=== PATIENT | male | born 1945 | race Caucasian/White ===

== ENCOUNTER 2018-09-10 18:38 | Inpatient (IN) | payer OTHER ==
[~2018-09-10] VITALS: Ht 180.3 cm; Wt 159.6 kg
--- NOTE | 2018-09-10 18:38 | NUR ---
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 cardiac, NIBP & SpO2 monitors in place.
--- NOTE | 2018-09-10 18:59 | NUR ---
report given to Marco.
[2018-09-10] MEDS ORDERED: VANCOMYCIN PER PHARMACY MC PRN (19:30)
[2018-09-10] MEDS ORDERED: METRONIDAZOLE PMX 500MG/100ML 100 ML IV ONE (19:30)
[2018-09-10] MEDS ORDERED: CEFTRIAXONE PMX 1GM/50ML 50 ML IV ONE (19:30)
[2018-09-10] MEDS ORDERED: SODIUM CHLORIDE 0.9% 1,000ML IVBOLUS ONE (19:30)
[2018-09-10] MEDS ORDERED: LORazepam 2 MG/ML, 1ML ONE (19:34)
[2018-09-10] MEDS ORDERED: METRONIDAZOLE PMX 500MG/100ML 100 ML ONE (19:45)
[2018-09-10] MEDS ORDERED: CEFTRIAXONE PMX 1GM/50ML 50 ML ONE (19:45)
[2018-09-10 19:52] LABS: BASOPHILS # (AUTO) 0.04 x10^3/uL (0-0.1); BASOPHILS % (AUTO) 0 % (0-1); EOSINOPHILS # (AUTO) 0.01 x10^3/uL (0-0.4); EOSINOPHILS % (AUTO) 0 % (1-7); LYMPHOCYTES # (AUTO) 0.96 x10^3/uL (1-3.4); LYMPHOCYTES % (AUTO) 9 % (22-44); MD NO; MEAN CORPUSCULAR HEMOGLOBIN 29.7 pg (27.5-34.5); MEAN CORPUSCULAR HGB CONC 32.5 g/dL (33.2-36.2); MEAN CORPUSCULAR VOLUME 91.6 fL (81-97); MEAN PLATELET VOLUME 8.6 fL (7.4-10.4); MONOCYTES # (AUTO) 0.94 x10^3/uL (0.2-0.8); MONOCYTES % (AUTO) 9 % (2-9); NEUTROPHILS # (AUTO) 8.62 x10^3/uL (1.8-6.8); NEUTROPHILS % (AUTO) 82 % (42-75); PLATELET COUNT 231 x10^3/uL (130-400); RED BLOOD COUNT 4.53 x10^6/uL (4.38-5.82); RED CELL DISTRIBUTION WIDTH 15.5 % (9.4-14.8)
[2018-09-10 19:55] LABS: HCT (SEDRATE) 41.4 % (39.2-51.8)
[2018-09-10] MEDS ORDERED: VANCOMYCIN 2,000 MG in SODIUM CHLORIDE 0.9% 500 ML IV ONE (20:00)
[2018-09-10] MEDS ORDERED: LORazepam 2 MG/ML, 1ML IVPush ONE (20:00)
[2018-09-10] MEDS ORDERED: PHARMACOKINETIC CONSULTATION MC ONE (20:00)
[2018-09-10 20:03] LABS: INTERNATIONAL NORMALIZED RATIO 2.33 (0.93-1.1); PROTHROMBIN TIME 23.9 Seconds (9.6-11.5)
[2018-09-10 20:05] LABS: ALBUMIN 2.8 g/dL (3.4-5.0); ANION GAP 8 mmol/L (5-15); CALCIUM 8.3 mg/dL (8.5-10.1); CHLORIDE 111 mmol/L (98-107)
[2018-09-10 20:11] LABS: ALANINE AMINOTRANSFERASE 79 U/L (12-78); ALKALINE PHOSPHATASE 81 U/L (45-117); BILIRUBIN,TOTAL 0.6 mg/dL (0.2-1.0); CREATININE 2.43 mg/dL (0.7-1.3); TOTAL PROTEIN 6.5 g/dL (6.4-8.2); TROPONIN I 0.065 ng/mL (0.000-0.045)
--- NOTE | 2018-09-10 20:50 | NUR ---
RN AND TECH ASSISTED PT TO CT WITH ENTRY LEVEL STAFF ACCOUNTANT. MULTIPLE STUDIES DONE. PT NOT COOPERATIVE WITH STUDY, PT REPOSITIONED ON CT TABLE MULTIPLE TIMES.
--- NOTE | 2018-09-10 21:05 | NUR ---
PT PLACED IN SOFT BILAT WRIST RESTRAINTS TO PREVENT PT FROM PULLING AT IV'S AND SANDS WHILE CLEANING PT. ORDER OBTAINED AND SIGNED.
--- NOTE | 2018-09-10 21:15 | NUR ---
LINENS AND SOILED CLOTHING REMOVED FROM UNDER PT. PT HAS MULTIPLE WOUND ON BILAT LEGS, ABBRASIONS AND BLISTERS WITH SKIN PEELING. WOUNDS AND BACKSIDE CLEANED WITH SOAP AND WATER, CHUCKS PLACED UNDER PT. PT POSITIONED FOR COMFORT AND WARM BLANKETS PROVIDED.
[2018-09-10 21:41] LABS: AMPHETAMINE SCREEN, URINE Negative (Negative); BARBITURATE SCREEN, URINE Negative (Negative); BENZODIAZEPINE SCREEN, URINE Negative (Negative); CANNABINOID SCREEN, URINE Negative (Negative); COCAINE SCREEN, URINE Negative (Negative); METHADONE SCREEN, URINE Negative (Negative); OPIATE SCREEN, URINE Positive (Negative)
[2018-09-10 22:03] LABS: CREATINE KINASE, TOTAL 30859 U/L (39-308)
[2018-09-10 22:12] LABS: CULTURE INDICATED? YES; MICROSCOPIC INDICATED
[2018-09-10] MEDS ORDERED: SODIUM CHLORIDE 0.9% 1,000 ML IV SCH (22:45)
[2018-09-10] MEDS ORDERED: SODIUM CHLORIDE 0.9% 2,000 ML IV ONE (23:00)
[2018-09-10] MEDS ORDERED: ONDANSETRON 2MG/ML, 2ML IVPush PRN (23:30)
[2018-09-10] MEDS ORDERED: hydrALAzine 20 MG/ML, 1ML IVPush PRN (23:30)
[2018-09-10] MEDS ORDERED: HALOPERIDOL 5 MG/ML IVPush PRN (23:30)
[2018-09-11 00:23] VITALS: BP 102/62
[2018-09-11] MEDS: SODIUM CHLORIDE 0.9% 1,000 ML IV SCH ×2 (00:38→08:16)
[2018-09-11 05:20] LABS: BASOPHILS # (AUTO) 0.02 x10^3/uL (0-0.1); BASOPHILS % (AUTO) 0 % (0-1); EOSINOPHILS # (AUTO) 0.02 x10^3/uL (0-0.4); EOSINOPHILS % (AUTO) 0 % (1-7); LYMPHOCYTES # (AUTO) 0.81 x10^3/uL (1-3.4); LYMPHOCYTES % (AUTO) 9 % (22-44); MD NO; MEAN CORPUSCULAR HEMOGLOBIN 29.9 pg (27.5-34.5); MEAN CORPUSCULAR HGB CONC 32.7 g/dL (33.2-36.2); MEAN CORPUSCULAR VOLUME 91.5 fL (81-97); MEAN PLATELET VOLUME 8.7 fL (7.4-10.4); MONOCYTES # (AUTO) 0.79 x10^3/uL (0.2-0.8); MONOCYTES % (AUTO) 9 % (2-9); NEUTROPHILS # (AUTO) 6.92 x10^3/uL (1.8-6.8); NEUTROPHILS % (AUTO) 81 % (42-75); PLATELET COUNT 189 x10^3/uL (130-400); RED BLOOD COUNT 4.16 x10^6/uL (4.38-5.82); RED CELL DISTRIBUTION WIDTH 15.7 % (9.4-14.8)
[2018-09-11 06:22] LABS: ALBUMIN 2.3 g/dL (3.4-5.0); ANION GAP 7 mmol/L (5-15); CALCIUM 7.4 mg/dL (8.5-10.1); CHLORIDE 119 mmol/L (98-107)
[2018-09-11 06:37] VITALS: BP 104/60
[2018-09-11 06:48] LABS: ALANINE AMINOTRANSFERASE 82 U/L (12-78); ALKALINE PHOSPHATASE 69 U/L (45-117); BILIRUBIN,TOTAL 0.4 mg/dL (0.2-1.0); CHOLESTEROL, TOTAL 125 mg/dL (140-239); CREATININE 1.98 mg/dL (0.7-1.3); FOLATE LEVEL 3.8 ng/mL (3.1-17.5); HDL CHOL % 34 % (26-37); HDL CHOLESTEROL (DIRECT) 42 mg/dL (40-60); LDL CHOLESTEROL,CALCULATED 62 mg/dL (54-169); LDL/HDL RATIO 1.5 (0.5-3.0); TOTAL PROTEIN 5.3 g/dL (6.4-8.2); TRIGLYCERIDES 106 mg/dL (50-200); VLDL CHOLESTEROL 21 mg/dL (0-25)
[2018-09-11] MEDS: LACTATED RINGERS 1,000 ML IV SCH ×2 (09:29→16:28)
[2018-09-11] MEDS ORDERED: SILVER SULF. CRM 1% , 25GM TP SCH (09:30)
[2018-09-11 12:13] VITALS: BP 102/67
[2018-09-11 12:41] LABS: CREATININE,URINE RANDOM 50.7 mg/dL
[2018-09-11] MEDS ORDERED: ASPI-515 PO (13:46)
[2018-09-11] MEDS ORDERED: EZET10TA18 PO (13:46)
[2018-09-11] MEDS ORDERED: TROS20TA2 PO (13:46)
[2018-09-11] MEDS ORDERED: RANI300C PO (13:46)
[2018-09-11] MEDS ORDERED: WARF-36 PO ×2 (13:46)
[2018-09-11] MEDS ORDERED: LISI40TA PO (13:46)
[2018-09-11] MEDS ORDERED: CYAN100063 PO (13:46)
[2018-09-11] MEDS ORDERED: FINA5TAB4 PO (13:46)
[2018-09-11] MEDS ORDERED: CYCL5TAB PO (13:46)
[2018-09-11] MEDS ORDERED: PROB500T22 PO (13:46)
[2018-09-11] MEDS ORDERED: TERA5CAP3 PO (13:46)
[2018-09-11] MEDS ORDERED: LORA10TA62 PO (13:46)
[2018-09-11] MEDS ORDERED: GABA800T5 PO (13:46)
[2018-09-11] MEDS ORDERED: HYDR25TA6 PO (13:46)
[2018-09-11] MEDS: POLYETHYLENE GLYCOL 17 GM PACKET PO PRN (14:54)
[2018-09-11] MEDS: HEPARIN 5,000 UNITS/ML, 1ML SQ SCH ×2 (14:54→22:19)
[2018-09-11 20:20] VITALS: BP 97/59
[2018-09-11] MEDS: CEFTRIAXONE PMX 1GM/50ML 50 ML IV SCH (20:21)
[2018-09-11] MEDS: SILVER SULF. CRM 1%, 400GM TP SCH (21:55)
[2018-09-11] MEDS: ACETAMINOPHEN 325 MG TABLET PO PRN (22:18)
[2018-09-12 01:13] VITALS: BP 136/54
[2018-09-12] MEDS: LACTATED RINGERS 1,000 ML IV SCH ×4 (01:25→22:49)
[2018-09-12 04:09] LABS: ALBUMIN 2.2 g/dL (3.4-5.0); ANION GAP 5 mmol/L (5-15); CALCIUM 7.6 mg/dL (8.5-10.1); CHLORIDE 115 mmol/L (98-107); CREATININE 1.59 mg/dL (0.7-1.3)
[2018-09-12] MEDS: ACETAMINOPHEN 325 MG TABLET PO PRN (05:19)
[2018-09-12] MEDS: HEPARIN 5,000 UNITS/ML, 1ML SQ SCH ×3 (05:20→22:41)
[2018-09-12 05:52] LABS: CREATINE KINASE, TOTAL 22814 U/L (39-308)
[2018-09-12 07:01] VITALS: BP 129/68
[2018-09-12] MEDS: PROBENECID 500 MG TABLET PO SCH ×2 (09:30→20:57)
[2018-09-12] MEDS ORDERED: LISINOPRIL 20 MG TABLET PO SCH (09:30)
[2018-09-12] MEDS ORDERED: HYDROCHLOROTHIAZIDE 25 MG TABLET PO SCH (09:30)
[2018-09-12] MEDS: TEMPLATE NON-FORMULARY MED. (Trospium Chloride 20 MG) HOMEMEDPO SCH (09:30)
[2018-09-12 10:24] LABS: INTERNATIONAL NORMALIZED RATIO 1.76 (0.93-1.1); PROTHROMBIN TIME 18.3 Seconds (9.6-11.5)
[2018-09-12] MEDS: TERAZOSIN 5MG CAPSULE PO SCH ×2 (10:27→20:56)
[2018-09-12] MEDS: LORATADINE 10 MG TABLET PO SCH (10:27)
[2018-09-12] MEDS: EZETIMIBE 10 MG TABLET PO SCH (10:27)
[2018-09-12] MEDS: GABAPENTIN 300 MG CAPSULE PO SCH ×2 (10:27→20:56)
[2018-09-12] MEDS: ASPIRIN 81 MG TABLET EC PO SCH (10:28)
[2018-09-12] MEDS: CYANOCOBALAMIN 1,000 MCG TABLET PO SCH (10:28)
[2018-09-12] MEDS: CYCLOBENZAPRINE 10 MG TABLET PO SCH ×3 (10:28→20:57)
[2018-09-12] MEDS: FINASTERIDE 5 MG TABLET PO SCH (10:37)
[2018-09-12] MEDS: SILVER SULF. CRM 1%, 400GM TP SCH ×2 (10:37→20:57)
[2018-09-12 12:42] VITALS: BP 123/65
[2018-09-12] MEDS: OXYcodone/APAP 5/325MG TABLET PO PRN (17:16)
[2018-09-12] MEDS ORDERED: WARFARIN 7.5 MG TABLET PO-COUM SCH (18:00)
[2018-09-12 20:30] VITALS: BP 96/51
[2018-09-12] MEDS: CEFTRIAXONE PMX 1GM/50ML 50 ML IV SCH (20:50)
[2018-09-12] MEDS: TEMPLATE NON-FORMULARY MED. (Ranitidine Hcl** 300 MG) HOMEMEDPO SCH (20:57)
[2018-09-13 01:23] VITALS: BP 94/57
[2018-09-13] MEDS: HEPARIN 5,000 UNITS/ML, 1ML SQ SCH ×3 (05:31→20:59)
[2018-09-13] MEDS: LACTATED RINGERS 1,000 ML IV SCH ×3 (05:31→18:20)
[2018-09-13 05:55] LABS: INTERNATIONAL NORMALIZED RATIO 1.5 (0.93-1.1); PROTHROMBIN TIME 15.7 Seconds (9.6-11.5)
[2018-09-13 08:30] VITALS: BP 122/76
[2018-09-13] MEDS: PROBENECID 500 MG TABLET PO SCH ×2 (09:00→20:56)
[2018-09-13] MEDS: TEMPLATE NON-FORMULARY MED. (Trospium Chloride 20 MG) HOMEMEDPO SCH (09:00)
[2018-09-13] MEDS: SILVER SULF. CRM 1%, 400GM TP SCH ×2 (09:00→20:56)
[2018-09-13] MEDS: GABAPENTIN 300 MG CAPSULE PO SCH ×2 (09:29→20:56)
[2018-09-13] MEDS: EZETIMIBE 10 MG TABLET PO SCH (09:29)
[2018-09-13] MEDS: TERAZOSIN 5MG CAPSULE PO SCH ×2 (09:30→20:56)
[2018-09-13] MEDS: FINASTERIDE 5 MG TABLET PO SCH (09:30)
[2018-09-13] MEDS: CYCLOBENZAPRINE 10 MG TABLET PO SCH ×3 (09:30→20:56)
[2018-09-13] MEDS: ASPIRIN 81 MG TABLET EC PO SCH (09:30)
[2018-09-13] MEDS: CYANOCOBALAMIN 1,000 MCG TABLET PO SCH (09:30)
[2018-09-13] MEDS: LORATADINE 10 MG TABLET PO SCH (09:31)
[2018-09-13] MEDS: OXYcodone/APAP 5/325MG TABLET PO PRN ×2 (12:30→18:38)
[2018-09-13 13:41] VITALS: BP 97/61
[2018-09-13] MEDS ORDERED: WARFARIN 7.5 MG TABLET PO-COUM SCH (18:00)
[2018-09-13 19:12] VITALS: BP 119/60
[2018-09-13] MEDS: CEFTRIAXONE PMX 1GM/50ML 50 ML IV SCH (19:59)
[2018-09-13] MEDS: TEMPLATE NON-FORMULARY MED. (Ranitidine Hcl** 300 MG) HOMEMEDPO SCH (20:57)
[2018-09-14] MEDS: OXYcodone/APAP 5/325MG TABLET PO PRN ×3 (01:05→23:21)
[2018-09-14 02:22] VITALS: BP 96/58
[2018-09-14] MEDS: LACTATED RINGERS 1,000 ML IV SCH ×3 (02:30→11:55)
[2018-09-14 05:45] LABS: INTERNATIONAL NORMALIZED RATIO 1.62 (0.93-1.1); PROTHROMBIN TIME 16.9 Seconds (9.6-11.5)
[2018-09-14] MEDS: HEPARIN 5,000 UNITS/ML, 1ML SQ SCH ×3 (05:58→22:05)
[2018-09-14] MEDS: TEMPLATE NON-FORMULARY MED. (Trospium Chloride 20 MG) HOMEMEDPO SCH (07:33)
[2018-09-14] MEDS: PROBENECID 500 MG TABLET PO SCH ×2 (07:34→21:00)
[2018-09-14] MEDS: LORATADINE 10 MG TABLET PO SCH (08:01)
[2018-09-14] MEDS: ASPIRIN 81 MG TABLET EC PO SCH (08:01)
[2018-09-14] MEDS: CYANOCOBALAMIN 1,000 MCG TABLET PO SCH (08:01)
[2018-09-14] MEDS: GABAPENTIN 300 MG CAPSULE PO SCH ×3 (08:01→20:59)
[2018-09-14] MEDS: FINASTERIDE 5 MG TABLET PO SCH (08:01)
[2018-09-14] MEDS: TERAZOSIN 5MG CAPSULE PO SCH ×2 (08:01→20:59)
[2018-09-14] MEDS: EZETIMIBE 10 MG TABLET PO SCH (08:02)
[2018-09-14] MEDS: CYCLOBENZAPRINE 10 MG TABLET PO SCH ×3 (08:02→20:58)
[2018-09-14] MEDS: POLYETHYLENE GLYCOL 17 GM PACKET PO PRN (08:09)
[2018-09-14 08:16] VITALS: BP 124/81
[2018-09-14] MEDS: SILVER SULF. CRM 1%, 400GM TP SCH ×2 (09:00→22:05)
[2018-09-14 10:29] LABS: ALANINE AMINOTRANSFERASE 65 U/L (12-78); ALBUMIN 1.9 g/dL (3.4-5.0); ANION GAP 7 mmol/L (5-15); CALCIUM 7.6 mg/dL (8.5-10.1); CHLORIDE 110 mmol/L (98-107); CREATININE 0.88 mg/dL (0.7-1.3)
[2018-09-14 10:43] LABS: ALKALINE PHOSPHATASE 62 U/L (45-117); BILIRUBIN,TOTAL 0.3 mg/dL (0.2-1.0); CREATINE KINASE, TOTAL 6488 U/L (39-308); TOTAL PROTEIN 4.5 g/dL (6.4-8.2)
[2018-09-14 12:53] VITALS: BP 133/71
[2018-09-14 14:51] LABS: MICROSCOPIC INDICATED
[2018-09-14 14:55] LABS: CREATININE,URINE RANDOM 75.4 mg/dL
[2018-09-14] MEDS ORDERED: WARFARIN 7.5 MG TABLET PO-COUM ONE (18:00)
[2018-09-14 18:49] VITALS: BP 124/76
[2018-09-14] MEDS: CEFTRIAXONE PMX 1GM/50ML 50 ML IV SCH (20:59)
[2018-09-14] MEDS: TEMPLATE NON-FORMULARY MED. (Ranitidine Hcl** 300 MG) HOMEMEDPO SCH (21:00)
[2018-09-15 00:19] VITALS: BP 122/76
[2018-09-15] MEDS: ACETAMINOPHEN 325 MG TABLET PO PRN (04:25)
[2018-09-15 05:19] LABS: BASOPHILS # (AUTO) 0.07 x10^3/uL (0-0.1); BASOPHILS % (AUTO) 1 % (0-1); EOSINOPHILS % (AUTO) 2 % (1-7); LYMPHOCYTES # (AUTO) 1.78 x10^3/uL (1-3.4); LYMPHOCYTES % (AUTO) 17 % (22-44); MD NO; MEAN CORPUSCULAR HEMOGLOBIN 30.2 pg (27.5-34.5); MEAN CORPUSCULAR HGB CONC 33.4 g/dL (33.2-36.2); MEAN CORPUSCULAR VOLUME 90.5 fL (81-97); MEAN PLATELET VOLUME 8.2 fL (7.4-10.4); MONOCYTES # (AUTO) 0.72 x10^3/uL (0.2-0.8); MONOCYTES % (AUTO) 7 % (2-9); NEUTROPHILS # (AUTO) 7.68 x10^3/uL (1.8-6.8); NEUTROPHILS % (AUTO) 74 % (42-75); PLATELET COUNT 278 x10^3/uL (130-400); RED BLOOD COUNT 4.58 x10^6/uL (4.38-5.82); RED CELL DISTRIBUTION WIDTH 15.4 % (9.4-14.8)
[2018-09-15 05:25] LABS: INTERNATIONAL NORMALIZED RATIO 2.07 (0.93-1.1); PROTHROMBIN TIME 21.3 Seconds (9.6-11.5)
[2018-09-15 05:32] LABS: ANION GAP 8 mmol/L (5-15); CALCIUM 7.5 mg/dL (8.5-10.1); CHLORIDE 107 mmol/L (98-107)
[2018-09-15 05:37] LABS: % IRON SATURATION 22 % (20-55); ALANINE AMINOTRANSFERASE 81 U/L (12-78); ALKALINE PHOSPHATASE 67 U/L (45-117); BILIRUBIN,TOTAL 0.4 mg/dL (0.2-1.0); CREATININE 0.95 mg/dL (0.7-1.3); IRON LEVEL 46 mcg/dL (65-175); TOTAL IRON BINDING CAPACITY 212 mcg/dL (250-450); TOTAL PROTEIN 4.7 g/dL (6.4-8.2)
[2018-09-15] MEDS: HEPARIN 5,000 UNITS/ML, 1ML SQ SCH ×2 (05:48→13:39)
[2018-09-15 06:59] VITALS: BP 117/78
[2018-09-15] MEDS: TEMPLATE NON-FORMULARY MED. (Trospium Chloride 20 MG) HOMEMEDPO SCH (07:36)
[2018-09-15] MEDS: PROBENECID 500 MG TABLET PO SCH (09:00)
[2018-09-15] MEDS: SILVER SULF. CRM 1%, 400GM TP SCH (09:00)
[2018-09-15] MEDS ORDERED: LACTATED RINGERS 1,000 ML IV SCH (09:30)
[2018-09-15] MEDS: ASPIRIN 81 MG TABLET EC PO SCH (09:40)
[2018-09-15] MEDS: CYCLOBENZAPRINE 10 MG TABLET PO SCH (09:40)
[2018-09-15] MEDS: LORATADINE 10 MG TABLET PO SCH (09:40)
[2018-09-15] MEDS: FINASTERIDE 5 MG TABLET PO SCH (09:40)
[2018-09-15] MEDS: POLYETHYLENE GLYCOL 17 GM PACKET PO PRN (09:40)
[2018-09-15] MEDS: TERAZOSIN 5MG CAPSULE PO SCH (09:41)
[2018-09-15] MEDS: EZETIMIBE 10 MG TABLET PO SCH (09:41)
[2018-09-15] MEDS: GABAPENTIN 300 MG CAPSULE PO SCH (09:41)
[2018-09-15] MEDS: CYANOCOBALAMIN 1,000 MCG TABLET PO SCH (09:41)
[2018-09-15] MEDS ORDERED: RANITIDINE HCL HOMEMEDPO (12:06)
[2018-09-15] MEDS ORDERED: TROSPIUM CHLORIDE HOMEMEDPO (12:06)
[2018-09-15] MEDS ORDERED: SILV25CR6 TP (12:06)
[2018-09-15] MEDS ORDERED: ERGOCALCIFEROL 50,000 UNIT CAPSULE PO SCH (12:30)
[2018-09-15] MEDS ORDERED: ERGO500017 PO (13:36)
[2018-09-15] MEDS: OXYcodone/APAP 5/325MG TABLET PO PRN (13:40)
[2018-09-15] MEDS ORDERED: WARFARIN 5 MG TABLET PO-COUM ONE (18:00)
== END 2018-09-15 15:37 | DRG 70 ==
LOC: ED 20:48 → SUATTDRO 22:59 → EDIP 23:16 → 4WST 23:53
PROVIDERS: ADMIT Hospitalist; ATTEND Hospitalist
PROC: 0T9B70Z Drainage of Bladder with Drainage Device, Via Natural or Artificial Opening (ICD-10-PCS; principal; 2018-09-10)
DX: G93.40 Encephalopathy, unspecified (principal); N17.0 Acute kidney failure with tubular necrosis; E43 Unspecified severe protein-calorie malnutrition; M62.82 Rhabdomyolysis; D68.69 Other thrombophilia; Z68.42 Body mass index [BMI] 45.0-49.9, adult; E87.0 Hyperosmolality and hypernatremia; D64.9 Anemia, unspecified; E55.9 Vitamin D deficiency, unspecified; E66.01 Morbid (severe) obesity due to excess calories; E78.5 Hyperlipidemia, unspecified; E87.5 Hyperkalemia; I27.20 Pulmonary hypertension, unspecified; I34.0 Nonrheumatic mitral (valve) insufficiency; I48.91 Unspecified atrial fibrillation; I50.9 Heart failure, unspecified; M19.90 Unspecified osteoarthritis, unspecified site; N40.0 Benign prostatic hyperplasia without lower urinary tract symptoms; Z79.01 Long term (current) use of anticoagulants; W18.39XA Other fall on same level, initial encounter; Y93.89 Activity, other specified; Y92.89 Other specified places as the place of occurrence of the external cause; Y99.8 Other external cause status; I11.0 Hypertensive heart disease with heart failure
CPT/HCPCS: 36415; 70450; 80053; 80061; 80069; 80074; 80307; 81001; 82140; 82306; 82436; 82550; 82570; 82607; 82728; 82746; 82962; 83540; 83550; 83605; 83735; 83970; 84100; 84133; 84155; 84156; 84165; 84300; 84425; 84443; 84484; 85025; 85610; 85651; 85730; 86140; 86160; 86162; 87040; 87086; 93005; 93306; 96365; 96375; G0378; J0696; J1644; J2405; J3370; J2060; J7030; J7040; J7120